=== PATIENT | male | born 1990 | race African-American/Black ===

== ENCOUNTER 2016-05-16 15:47 | Emergency (ER) | payer MEDICAID ==
[~2016-05-16] VITALS: Ht 165.1 cm; Wt 61.0 kg
[2016-05-16 16:57] LABS: BASOPHILS % 0.9 % (0.0-2.0); EOSINOPHILS % 3.5 % (0.0-5.0); HEMATOCRIT. 41.7 % (42.0-52.0); HEMOGLOBIN. 13.8 g/dL (14.0-18.0); LYMPHOCYTES % 49.9 % (20.0-50.0); MEAN CORPUSCULAR HEMOGLOBIN 26.8 pg (28.0-32.0); MEAN CORPUSCULAR VOLUME 81.1 fL (80.0-94.0); MEAN PLATELET VOLUME 7.7 fl (7.4-10.4); MONOCYTES % 9.3 % (2.0-8.0); NEUTROPHILS % 36.4 % (40.0-76.0); PLATELET 223 x1000/uL (130-400); RED BLOOD CELL COUNT 5.15 mill/uL (4.7-6.1); RED CELL DISTRIBUTION WIDTH 13.6 % (11.6-14.6); WHITE BLOOD COUNT 4.5 x1000/uL (4.5-11.0)
[2016-05-16 17:10] LABS: ALANINE AMINOTRANSFERASE 22 IU/L (13-61); ALBUMIN 4.3 g/dL (3.4-5.0); ANION GAP 10; CARBON DIOXIDE 29 mEq/L (21-32); CHLORIDE 103 mEq/L (98-107); ETHANOL BLOOD < 10 mg/dL; INDEX HEMOLYSI 1 (1-3); INDEX ICTERIC 1 (1-4); INDEX LIPEMIC 1 (1-3); UREA NITROGEN BLOOD 9 mg/dL (7-21); eGFR > 60 mL/min (>60)
[2016-05-16 17:32] LABS: *AMPHETAMINES SCREEN URINE NEGATIVE (NEGATIVE); *BARBITURATES SCREEN URINE NEGATIVE (NEGATIVE); *BENZODIAZEPINES SCREEN URINE NEGATIVE (NEGATIVE); *COCAINE SCREEN URINE NEGATIVE (NEGATIVE); CANNABINOID URINE SCREEN NEGATIVE (NEGATIVE); ECSTASY MDMA SCREEN URINE NEGATIVE (NEGATIVE); METHADONE URINE SCREEN NEGATIVE (NEGATIVE); OPIATES URINE SCREEN NEGATIVE (NEGATIVE); PHENCYCLIDINE URINE SCREEN NEGATIVE (NEGATIVE)
[2016-05-16 20:45] VITALS: BP 120/80
== END 2016-05-16 20:52 | disposition home or self-care (01) ==
LOC: ER 16:49
DX: R53.83 Other fatigue (principal)
CPT/HCPCS: 36415; 70450; 72125; 80053; 80305; 85025; 93005; 99285; G0482; Z7610

== ENCOUNTER 2016-05-24 12:01 | Emergency (ER) | payer MEDICAID ==
[~2016-05-24] VITALS: Ht 162.6 cm; Wt 68.0 kg
[2016-05-24 16:03] VITALS: BP 110/75
== END 2016-05-24 16:10 | disposition home or self-care (01) ==
LOC: ER 14:37
DX: R07.9 Chest pain, unspecified (principal); R10.9 Unspecified abdominal pain
CPT/HCPCS: 71010; 99283; Z7610

== ENCOUNTER 2016-06-04 06:31 | Emergency (ER) | payer MEDICAID ==
[~2016-06-04] VITALS: Ht 165.1 cm; Wt 63.6 kg
[2016-06-04] MEDS ORDERED: SODIUM CHLORIDE 0.9% 1,000 ML IV ONE (09:00)
[2016-06-04] MEDS ORDERED: KETOROLAC 30MG/ML VIAL IV ONE (09:00)
[2016-06-04 09:10] LABS: HEMATOCRIT. 42.9 % (42.0-52.0); HEMOGLOBIN. 14.3 g/dL (14.0-18.0); MEAN CORPUSCULAR HEMOGLOBIN 27.2 pg (28.0-32.0); MEAN CORPUSCULAR HGB CONC 33.3 g/dL (31.0-37.0); MEAN CORPUSCULAR VOLUME 81.6 fL (80.0-94.0); PLATELET 181 x1000/uL (130-400); RED BLOOD CELL COUNT 5.26 mill/uL (4.7-6.1); RED CELL DISTRIBUTION WIDTH 13.4 % (11.6-14.6)
[2016-06-04 09:23] LABS: ALANINE AMINOTRANSFERASE 28 IU/L (13-61); ALBUMIN 3.9 g/dL (3.4-5.0); ANION GAP 12; CALCIUM 9.1 mg/dL (8.5-10.1); CARBON DIOXIDE 27 mEq/L (21-32); CHLORIDE 107 mEq/L (98-107); INDEX HEMOLYSI 1 (1-3); INDEX ICTERIC 1 (1-4); INDEX LIPEMIC 1 (1-3); UREA NITROGEN BLOOD 9 mg/dL (7-21); eGFR > 60 mL/min (>60)
[2016-06-04 09:57] LABS: PLATELET ESTIMATE NORMAL
[2016-06-04] MEDS ORDERED: PENICILLIN G BENZATHINE 1,200,000 UNITS/2ML SYR IM ONE (10:00)
[2016-06-04 10:22] LABS: CLARITY URINE CLEAR (CLEAR); COLOR URINE YELLOW (YELLOW); GLUCOSE URINE NEGATIVE (NEGATIVE); KETONES URINE NEGATIVE (NEGATIVE); LEUKOCYTE ESTERASE URINE NEGATIVE (NEGATIVE); NITRITE URINE NEGATIVE (NEGATIVE); OCCULT BLOOD URINE NEGATIVE (NEGATIVE); PROTEIN URINE NEGATIVE (NEGATIVE); SPECIFIC GRAVITY URINE 1.006 (1.005-1.030); UROBILINOGEN URINE 0.2 E.U./dL (0.2-1.0)
[2016-06-04 11:23] VITALS: BP 146/97
== END 2016-06-04 11:59 | disposition home or self-care (01) ==
LOC: ER 08:00
DX: J02.0 Streptococcal pharyngitis (principal); F41.9 Anxiety disorder, unspecified
CPT/HCPCS: 36415; 80053; 81003; 85007; 85027; 87430; 93005; 96360; 96361; 96372; 99285; J0561; J7030; Z7610

== ENCOUNTER 2016-06-17 15:51 | Emergency (ER) | payer MEDICAID ==
[~2016-06-17] VITALS: Ht 165.1 cm; Wt 64.0 kg
[2016-06-17] MEDS ORDERED: SODIUM CHLORIDE 0.9% 1,000 ML IV ONE (16:25)
[2016-06-17 16:58] VITALS: BP 130/79
== END 2016-06-17 19:27 | disposition left against medical advice (07) ==
LOC: ER 19:16
DX: R53.1 Weakness (principal); F41.9 Anxiety disorder, unspecified; I10 Essential (primary) hypertension; R00.2 Palpitations
CPT/HCPCS: 93005; 99283; J7030; Z7610

== ENCOUNTER 2016-07-03 21:13 | Emergency (ER) | payer MEDICAID ==
[~2016-07-03] VITALS: Ht 167.6 cm; Wt 64.0 kg
[2016-07-03 21:48] VITALS: BP 121/85
== END 2016-07-04 04:21 | disposition left against medical advice (07) ==
LOC: ER 21:14
DX: R07.9 Chest pain, unspecified (principal); R42 Dizziness and giddiness; Z53.21 Procedure and treatment not carried out due to patient leaving prior to being seen by health care provider
CPT/HCPCS: 93005

== ENCOUNTER 2017-01-28 12:02 | Emergency (ER) | payer MEDICAID ==
[~2017-01-28] VITALS: Ht 177.8 cm; Wt 78.0 kg
[2017-01-28] MEDS ORDERED: PENICILLIN G BENZATHINE 1,200,000 UNITS/2ML SYR IM ONE (12:30)
[2017-01-28] MEDS ORDERED: KETOROLAC 60MG/2ML VIAL IM ONE (12:30)
[2017-01-28] MEDS ORDERED: DEXAMETHASONE 10 MG/ML VIAL IM ONE (12:30)
[2017-01-28 12:46] VITALS: BP 123/82
== END 2017-01-28 13:06 | disposition home or self-care (01) ==
LOC: ER 12:21
DX: J02.9 Acute pharyngitis, unspecified (principal); R59.0 Localized enlarged lymph nodes
CPT/HCPCS: 87070; 87430; 96372; 99284; J0561; J1100; J1885; Z7610

== ENCOUNTER 2017-12-17 19:44 | Emergency (ER) | payer MEDICAID ==
[~2017-12-17] VITALS: Ht 180.3 cm; Wt 78.0 kg
[2017-12-17] MEDS ORDERED: SODIUM CHLORIDE 0.9% 1,000 ML IV ONE (20:49)
[2017-12-17] MEDS ORDERED: KETOROLAC 30MG/ML VIAL IV STA (20:49)
[2017-12-17] MEDS ORDERED: MORPHINE SULFATE 4 MG/ML CPJ (NOT FOR IM USE) IV STA (20:49)
[2017-12-17] MEDS ORDERED: ONDANSETRON HCL 4MG/2ML INJ IV STA (20:49)
[2017-12-17] MEDS ORDERED: MIDAZOLAM HCL 2 MG/2 ML VIAL IV ONE (21:00)
[2017-12-17] MEDS ORDERED: KETAMINE HCL 50 MG/ML 10ML IV ONE (21:00)
[2017-12-17] MEDS ORDERED: MORPHINE SULFATE 4 MG/ML CPJ (NOT FOR IM USE) IV ONE (23:15)
[2017-12-17] MEDS ORDERED: ONDANSETRON HCL 4MG/2ML INJ IV ONE (23:15)
[2017-12-18 00:57] VITALS: BP 118/77
== END 2017-12-18 04:20 | disposition home or self-care (01) ==
LOC: ER 19:44
DX: S02.651A Fracture of angle of right mandible, initial encounter for closed fracture (principal); X50.0XXA Overexertion from strenuous movement or load, initial encounter; Y93.67 Activity, basketball; Y92.89 Other specified places as the place of occurrence of the external cause; Y99.8 Other external cause status
CPT/HCPCS: 70486; 96374; 96375; 96376; 99285; J1885; J2250; J2270; J2405; J7030; J3490

== ENCOUNTER 2019-11-01 11:02 | Emergency (ER) | payer MEDICAID ==
[~2019-11-01] VITALS: Ht 172.7 cm; Wt 66.0 kg
[2019-11-01 12:33] VITALS: BP 138/78
== END 2019-11-01 12:34 | disposition home or self-care (01) ==
LOC: ER 11:13
DX: M54.2 Cervicalgia (principal); R51 Headache; M43.6 Torticollis
CPT/HCPCS: 99283

== ENCOUNTER 2024-09-12 02:08 | Emergency (ER) | payer MEDICAID ==
[~2024-09-12] VITALS: Ht 167.6 cm; Wt 67.0 kg
[2024-09-12 02:37] VITALS: RESP 18; O2SAT 97
[2024-09-12] MEDS: ACETAMINOPHEN 325MG TABLET PO ONE (04:04)
[2024-09-12] MEDS ORDERED: AMOX-494 MT (04:51)
[2024-09-12 05:28] VITALS: BP 115/76; PULSE 91; TEMP 37; O2SAT 98
== END 2024-09-12 05:29 | disposition home or self-care (01) ==
LOC: ER 02:08
DX: J02.0 Streptococcal pharyngitis (principal)
CPT/HCPCS: 87070; 87430; 99283